=== PATIENT | male | born 1980 | race Caucasian/White ===

== ENCOUNTER 2016-11-17 22:13 | Emergency (ER) | payer BC ==
--- NOTE | 2016-11-17 22:50 | ERNOTE ---
Medical Problem HPI - General Chief Complaint: Laceration Time Seen by Provider: 11/17/16 22:42 Source: patient Exam Limitations: no limitations - Immun/Allergies/Home Medications Immunizations: IMMUNIZATION HX Immunizations Up to Date Yes Allergies/Adverse Reactions: Allergies No Known Allergies Allergy (Verified 11/17/16 22:23) Home Medications: HOME MEDICATIONS HYDROcodone/ACETAMINOPHEN [Hydrocodon-Acetaminophen 5-325] 1 each PO DAILY 11/17 [Last Taken Unknown] traMADol HCL [Ultram] 50 mg PO DAILY 11/17/16 [Last Taken Unknown] - History of Present History Narrative: Right hand laceration. Pt was washing dishes and knife was on the counter. accidentally lacerated his right hand Timing: constant Severity: moderate Review of Systems - Review of Systems Constitutional: Absent: recent illness EYE: Present: no symptoms reported ENT: Present: no symptoms reported Respiratory: Present: no symptoms reported Musculoskeletal: Absent: joint pain, joint swelling Skin: Present: See HPI Neurological: Absent: numbness, tingling - Patient's Past Medical History Patient History - Medical: No pertinent hx Patient History - Cardiac/Respiratory: No pertinent hx Patient History - Cancer: No Hx of Cancer Patient History - Surgical Procedures: Ear Tubes, Orthopedic Patient History - Other: None - Social History Living Situations: spouse Psych History: No pertinent hx Smoking Status: Current every day smoker Alcohol Use: occasionally Drug Use: none - Immunizations Immunizations Up to Date: Yes Physical Exam - Physical Exam General Appearance: Present: wd/wn, alert, no apparent distress Neck: Present: normal inspection, supple Respiratory: Present: no respiratory distress, no accessory muscle use Extremity Exam: Present: normal range of motion. Absent: bony tenderness Neurological Exam: Present: alert, oriented, no motor/sensory deficits Skin Exam: Present: normal color, other - laceration over right 2nd MCPJ obliquely 3 cm, no tendon visibility ED Progress - Vital Signs Vital Signs: Vital Signs 11/17/16 22:18 Temperature 36.9 C Pulse Rate 95 Respiratory 16 Rate Blood Pressure 123/75 O2 Sat by Pulse 96 Oximetry - Progress/Reassessment Chief Complaint: Laceration Procedures Right Hand 2nd Digit Anesthesia: Lidocaine w/ Epi, Local I & D Prep: betadine prep, sterile drapes applied Length of Repair/Wound (cm): 3 Wound's Depth/Shape: into subcutaneous, linear Wound Explored: clean, to base, in bloodless field Distal NVT: neuro/vasc intact, no tendon injury Suture Size/Type: 4-0, nylon Number of Sutures: 6 Estimated blood loss (ml): 5 Wound Dressing: sterile dressing applied Complications: Pt paula procedure well Departure - Departure Clinical Impression: Laceration Disposition: Home Follow Up Needed Condition: Good Instructions: Laceration Care, Adult, [id number] Additional Instructions: have sutures taken out in 7-10 days. Avoid any strong gripping/ lifting / pulling with that hand
[2016-11-17] MEDS ORDERED: LIDOCAINE HCL/EPINEPHRINE 30 ML VIAL IJ ONE (23:32)
[2016-11-18 00:01] VITALS: BP 121/69
== END 2016-11-18 | disposition home or self-care (01) ==
LOC: ER 22:13
DX: S61.210A Laceration without foreign body of right index finger without damage to nail, initial encounter (principal); W26.0XXA Contact with knife, initial encounter; Y93.G1 Activity, food preparation and clean up; Y92.9 Unspecified place or not applicable; Y99.9 Unspecified external cause status